=== PATIENT | male | born 1975 | race American Indian/Alaskan Native ===

== ENCOUNTER 2017-12-05 07:49 | Day surgery (SDC) | payer OTHER ==
[2017-12-05 08:04] VITALS: BMI 30.2
[2017-12-05] MEDS ORDERED: Lactated Ringer's 500 ML IV ONE ×2 (09:52)
[2017-12-05] MEDS ORDERED: Lidocaine Hydrochloride 5 ML INJ ONE (10:17)
[2017-12-05] MEDS ORDERED: Midazolam 2 MG/2 ML VIAL ONE (10:17)
[2017-12-05] MEDS ORDERED: Propofol 10 mg/ml Inj (20 ML) ONE ×2 (10:17)
[2017-12-05 10:37] VITALS: TEMP 98.6; O2SAT 100
[2017-12-05 12:30] VITALS: BP 116/72; PULSE 81; RESP 12
== END 2017-12-05 11:40 | disposition home or self-care (01) ==
LOC: C.ENDO 07:49
PROVIDERS: ATTEND Internal Medicine Gastroenterology
DX: R63.4 Abnormal weight loss (principal); K64.8 Other hemorrhoids
CPT/HCPCS: 45378; J2250; J2704; J7120